=== PATIENT | female | born 1980 | race Caucasian/White ===

== ENCOUNTER → 2017-02-05 | Outpatient (CLI) | payer BC | LOC: EXRD 09:25 | DX: M25.511 Pain in right shoulder (principal) | CPT/HCPCS: 73000; 73030 ==

== ENCOUNTER 2021-06-28 19:39 | Emergency (ER) | payer BC ==
[~2021-06-28 19:39] MED LIST: DIFLUCAN150 MG PO
[2021-06-29] MEDS ORDERED: ZOFRAN ODT 4 MG4 MG SL (01:35)
[2021-06-29] MEDS ORDERED: BACTRIM DS TAB1 EACH PO (01:35)
== END 2021-06-29 02:04 | disposition home or self-care (01) ==
LOC: ER1 19:39
DX: N39.0 Urinary tract infection, site not specified (principal); Z90.710 Acquired absence of both cervix and uterus; Z79.84 Long term (current) use of oral hypoglycemic drugs; Z79.899 Other long term (current) drug therapy; E78.5 Hyperlipidemia, unspecified; E11.9 Type 2 diabetes mellitus without complications
CPT/HCPCS: 81001; 99283

== ENCOUNTER → 2022-01-05 | Outpatient (CLI) | payer BC ==
[~2022-01-05] MED LIST changes: +BACTRIM DS TAB1 EACH PO; +ZOFRAN ODT 4 MG4 MG SL
[2022-01-05 21:28] LABS: BUN/CREATININE RATIO 14 (0-10)
== END ==
LOC: LAB 20:48
PROVIDERS: Nurse Practitioner Family
DX: E11.9 Type 2 diabetes mellitus without complications (principal); E03.9 Hypothyroidism, unspecified
CPT/HCPCS: 80053; 83036; 84439; 84443